=== PATIENT | female | born 1990 | race Hispanic/Latino ===

== ENCOUNTER 2017-11-17 18:57 | Emergency (ER) | payer SELFPAY ==
[2017-11-17] MEDS ORDERED: diphenhydrAMINE 25 MG CAP ONE (20:17)
[2017-11-17] MEDS ORDERED: Famotidine 20 MG TAB ONE (20:17)
[2017-11-17] MEDS ORDERED: Dexamethasone 4 mg/ml Vial ONE (20:17)
== END 2017-11-17 20:56 | disposition home or self-care (01) ==
LOC: ERS 18:57
DX: H00.024 Hordeolum internum left upper eyelid (principal); L03.211 Cellulitis of face; E66.9 Obesity, unspecified; F17.210 Nicotine dependence, cigarettes, uncomplicated
CPT/HCPCS: 99283; J1100

== ENCOUNTER 2024-03-18 13:01 | Emergency (ER) | payer SELFPAY ==
[2024-03-18] MEDS ORDERED: Ondansetron ODT 4 MG TAB ONE (13:34)
[2024-03-18] MEDS ORDERED: Aspirin Chewable 81 MG TAB ONE (13:34)
[2024-03-18 13:50] LABS: #Basophils 0.04 10x3/uL (0.0-0.2); %Basophils 0.4 % (0.0-1.0); %Eosinophils 5.1 % (0.0-10.0); %Lymphocytes 28.2 % (21.0-51.0); %Monocytes 5.1 % (0.0-10.0); Hematocrit 35.4 % (36.0-47.0); Hemoglobin 11.2 g/dL (12.0-16.0); Mean Corpuscular HGB CONC 31.6 g/dL (32.0-36.0); Mean Corpuscular Hemoglobin 27.3 pg (27.0-31.0); Mean Corpuscular Volume 86.1 fL (78.0-98.0); Mean Platelet Volume 12.6 fL (7.4-10.4); Platelet Count 348 10x3/uL (130-400); RBC Distribution Width 14.4 % (11.5-14.5); Red Blood Cell (RBC) Count 4.11 mill/uL (4.20-5.40)
[2024-03-18 14:04] LABS: BHCG - Serum Negative (NEGATIVE); Pregs Control Background? CLEAR/WHITE (CLR/WHITE); Pregs Control Bar Appear? YES (CONTROL BAR)
[2024-03-18 14:15] LABS: Troponin I Less than 0.010 ng/mL (< 0.028)
[2024-03-18 15:06] LABS: ALT (SGPT) 17 U/L (8-55); AST (SGOT) 18 U/L (5-34); Albumin 3.7 g/dL (3.5-5.0); Alkaline Phosphatase 86 U/L (40-110); Anion Gap 12 mmol/L (10-20); BUN (Urea Nitrogen) 10 mg/dL (7.0-18.7); Bilirubin, Total 0.3 mg/dL (0.2-1.2); Calc. Creatinine Clearance 0 mL/min (70-130); Calcium 8.9 mg/dL (7.8-10.44); Carbon Dioxide 20 mmol/L (22-29); Chloride 110 mmol/L (98-107); Estimated GFR 119; Globulin 3.4 g/dL (2.4-3.5); Glucose 112 mg/dL (70-105); Potassium 4.2 mmol/L (3.5-5.1); Protein, Total 7.1 g/dL (6.0-8.3); Sodium 138 mmol/L (136-145)
== END 2024-03-18 15:51 | disposition home or self-care (01) ==
LOC: ERS 13:01
DX: R07.9 Chest pain, unspecified (principal); F17.210 Nicotine dependence, cigarettes, uncomplicated; E66.9 Obesity, unspecified
CPT/HCPCS: 36415; 71045; 80053; 84484; 84703; 85025; 93005; Q0162